=== PATIENT | female | born 1980 | race Caucasian/White ===

== ENCOUNTER → 2019-12-01 | Outpatient (REF) | payer OTHER ==
[2019-12-01 14:36] LABS: ALBUMIN 3.6 GM/DL (3.2-5.2); ALT/SGPT 29 U/L (12-78); BILIRUBIN,TOTAL 0.3 MG/DL (0.2-1.0); BLOOD UREA NITROGEN 13 MG/DL (7-18); CALCIUM LEVEL 9.3 MG/DL (8.5-10.1); CARBON DIOXIDE LEVEL 23 MEQ/L (21-32); CHLORIDE LEVEL 110 MEQ/L (98-107); CHOLESTEROL LEVEL 161 MG/DL (<200); CHOLESTEROL RISK RATIO 4.025 (<5); CREATININE FOR GFR 0.79 MG/DL (0.55-1.30); GLOMERULAR FILTRATION RATE > 60.0 (>58); GLUCOSE, FASTING 103 MG/DL (70-100); HDL CHOLESTEROL 40 MG/DL (>40); LDL CHOLESTEROL 98 MG/DL (<100); NON-HDL-C 121 MG/DL; SODIUM LEVEL 139 MEQ/L (136-145); TOTAL PROTEIN 7.2 GM/DL (6.4-8.2); TRIGLYCERIDES LEVEL 116 MG/DL (<150)
== END ==
LOC: M LAB REF 12:43
PROVIDERS: ATTEND Physician Assistant
DX: Z00.00 Encounter for general adult medical examination without abnormal findings (principal); Z68.42 Body mass index [BMI] 45.0-49.9, adult; E66.01 Morbid (severe) obesity due to excess calories; L30.9 Dermatitis, unspecified; F17.210 Nicotine dependence, cigarettes, uncomplicated; J45.20 Mild intermittent asthma, uncomplicated; Z23 Encounter for immunization; Z13.9 Encounter for screening, unspecified; J30.81 Allergic rhinitis due to animal (cat) (dog) hair and dander; G43.109 Migraine with aura, not intractable, without status migrainosus

== ENCOUNTER → 2019-12-01 | Outpatient (REF) | payer OTHER ==
[2019-12-01 14:28] LABS: BASO # 0.1 10^3/uL (0.0-0.2); BASO % 0.7 % (0.0-1.0); EOS # 0.3 10^3/uL (0.0-0.5); EOS % 4.2 % (0.0-3.0); HEMATOCRIT 45.6 % (36.0-47.0); HEMOGLOBIN 14.2 g/dl (12.0-15.5); LYMPH # 2.9 10^3/uL (1.5-5.0); LYMPH % 36.3 % (24.0-44.0); MEAN CORPUSCULAR HEMOGLOBIN 26.7 pg (27.0-33.0); MEAN CORPUSCULAR HGB CONC 31.1 g/dl (32.0-36.5); MEAN CORPUSCULAR VOLUME 85.7 fl (80.0-96.0); MONO # 0.6 10^3/uL (0.0-0.8); MONO % 7.3 % (0.0-5.0); NEUTROPHILS # 4.1 10^3/uL (1.5-8.5); NEUTROPHILS % 51.4 % (36.0-66.0); PLATELET COUNT, AUTOMATED 305 10^3/uL (150-450); RED BLOOD COUNT 5.32 10^6/uL (4.00-5.40)
[2019-12-01 14:42] LABS: FREE T4 1.08 NG/DL (0.76-1.46); PROLACTIN 11.8 NG/ML; THYROID STIMULATING HORMONE 1.73 uIU/ML (0.358-3.740)
== END ==
LOC: M LABDRWAD 12:39
PROVIDERS: ATTEND Nurse Practitioner Women's Health
DX: N92.0 Excessive and frequent menstruation with regular cycle (principal)

== ENCOUNTER → 2020-04-19 | Outpatient (CLI) | payer OTHER ==
[~2020-04-19] MED LIST: ACET1TAB55 PO; BENA25CA4 PO; BUSP10TA PO; CETI10CH PO; CHAN1PAK13 PO; IBUP200C27 PO; PROAAER10 INH
== END ==
LOC: M LABSMTC 09:40
PROVIDERS: ATTEND Anesthesiology
DX: Z03.818 Encounter for observation for suspected exposure to other biological agents ruled out (principal); Z11.59 Encounter for screening for other viral diseases
CPT/HCPCS: C9803; U0003

== ENCOUNTER 2020-04-22 10:44 | Day surgery (SDC) | payer MEDICAID, OTHER ==
[~2020-04-22] VITALS: Ht 167.6 cm; Wt 113.6 kg
[2020-04-22] VITALS (7 sets, daily range): BP systolic 108–150; BP diastolic 59–80; O2SAT 93
[~2020-04-22 10:44] MED LIST changes: +LR 1,000 ML IV ONE; +ceFAZolin SOD 2 GM in IV 1 EA IV ONE
[2020-04-22 11:42] LABS: HEMATOCRIT 45.7 % (36.0-47.0); HEMOGLOBIN 14.9 g/dl (12.0-15.5); MEAN CORPUSCULAR HEMOGLOBIN 27.4 pg (27.0-33.0); MEAN CORPUSCULAR HGB CONC 32.6 g/dl (32.0-36.5); MEAN CORPUSCULAR VOLUME 84.2 fl (80.0-96.0); PLATELET COUNT, AUTOMATED 367 10^3/uL (150-450); RED BLOOD COUNT 5.43 10^6/uL (4.00-5.40); WHITE BLOOD COUNT 11.9 10^3/uL (4.0-10.0)
[2020-04-22] MEDS ORDERED: fentaNYL 250 MCG/5 ML INJECTION (J3010) As Ordered ONE (11:51)
[2020-04-22] MEDS ORDERED: propofoL 200 MG/20 ML VIAL As Ordered ONE (11:51)
[2020-04-22] MEDS ORDERED: LIDOCAINE 2% 100MG/5ML SDV (FOR ANES.) As Ordered ONE ×2 (11:51→17:33)
[2020-04-22] MEDS ORDERED: MIDAZOLAM INJ 2MG/2ML VIAL (J2250 PER 1MG) As Ordered ONE (11:51)
[2020-04-22] MEDS ORDERED: dexameTHASONE 4 MG/ML 1ML VIAL (J1100 PER 1MG) As Ordered ONE (11:52)
[2020-04-22 12:00] LABS: HCG, SERUM QUALITATIVE NEGATIVE (NEGATIVE)
[2020-04-22] MEDS ORDERED: METHYLENE BLUE 0.5% (5MG/ML) 10 ML AMP (PROVAYBLUE) As Ordered ONE (15:36)
[2020-04-22] MEDS ORDERED: LABETALOL 100MG/20ML VIAL As Ordered ONE (16:57)
[2020-04-22] MEDS ORDERED: ROCURONIUM BROMIDE 50 MG/5 ML VIAL As Ordered ONE ×2 (17:07→17:47)
[2020-04-22] MEDS ORDERED: ACETAMINOPHEN 1000MG 100ML IV BTL (OFIRMEV) (J0131 PER 10MG) As Ordered ONE (17:22)
[2020-04-22] MEDS ORDERED: SUGAMMADEX SODIUM 500 MG/5 ML VIAL (BRIDION) As Ordered ONE (17:22)
[2020-04-22] MEDS ORDERED: ONDANSETRON 4MG/2ML VIAL As Ordered ONE (17:22)
[2020-04-22] MEDS ORDERED: HYDROmorphone HCL 2 MG/ML 1ML VIAL (J1170) As Ordered ONE (17:46)
[2020-04-22] MEDS ORDERED: MORPHINE 1MG/ML IN 0.9% NACL 100ML IV BAG As Ordered ONE (18:47)
[2020-04-22] MEDS ORDERED: IBUPROFEN 600MG TAB PO PRN (19:00)
[2020-04-22] MEDS ORDERED: fentaNYL 100 MCG/2 ML INJECTION (J3010) IV PRN (19:00)
[2020-04-22] MEDS ORDERED: NALBUPHINE HCL 10 MG/ML AMP (J2300) IV PRN (19:00)
[2020-04-22] MEDS ORDERED: MORPHINE 1MG/ML IN 0.9% NACL 100ML IV BAG IV PRN (19:00)
[2020-04-22] MEDS ORDERED: METOCLOPRAMIDE INJ 10MG/2ML VIAL (J2765 PER 1) IV PRN (19:00)
[2020-04-22] MEDS ORDERED: EPIDURAL/PCA KEYS XX PRN (19:00)
[2020-04-22] MEDS ORDERED: LR 1,000 ML IV SCH (19:00)
[2020-04-22] MEDS ORDERED: NALOXONE INJ 0.4MG/1ML VIAL (J2310 PER 1MG) IV PRN (19:00)
[2020-04-22] MEDS ORDERED: MEPERIDINE INJ 25 MG/ML VIAL (J2175) IV PRN (19:00)
[2020-04-22] MEDS ORDERED: diphenhydrAMINE 50MG/ML VIAL (J1200) IV PRN (19:00)
[2020-04-22] MEDS ORDERED: ONDANSETRON 4MG/2ML VIAL IV PRN (19:00)
[2020-04-22] MEDS ORDERED: PERCOCET 5MG/325MG TAB PO PRN (19:00)
[2020-04-22] MEDS: LR 1,000 ML IV SCH (20:58)
[2020-04-23 00:55] VITALS: BP 114/62
[2020-04-23] MEDS: LR 1,000 ML IV SCH ×2 (04:03→11:00)
[2020-04-23 04:55] VITALS: BP 123/63
[2020-04-23] MEDS ORDERED: NORCO, ANEXSIA 5/325MG TABLET (HYDROcodone/ACETAMINOPHEN) PO PRN (06:00)
[2020-04-23 08:55] VITALS: BP 116/62
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
== END 2020-04-23 11:25 | disposition home or self-care (01) ==
LOC: M SDC 10:44 → M MSPAV 19:55 → M SDC 04-23 11:25
PROVIDERS: ATTEND Obstetrics & Gynecology
DX: N83.11 Corpus luteum cyst of right ovary (principal); N83.202 Unspecified ovarian cyst, left side; N92.0 Excessive and frequent menstruation with regular cycle; J45.909 Unspecified asthma, uncomplicated; D64.9 Anemia, unspecified; G43.909 Migraine, unspecified, not intractable, without status migrainosus; F41.9 Anxiety disorder, unspecified; F32.9 Major depressive disorder, single episode, unspecified; F17.218 Nicotine dependence, cigarettes, with other nicotine-induced disorders; Z79.899 Other long term (current) drug therapy
CPT/HCPCS: 36415; 58571; 84703; 85027; 86850; 86900; 86901; 88307; J0131; J0690; J1100; J1170; J2250; J2405; J3010; Q9968

== ENCOUNTER → 2020-10-03 | Outpatient (REF) | payer MEDICAID ==
[~2020-10-03] MED LIST changes: -LR 1,000 ML IV ONE; -ceFAZolin SOD 2 GM in IV 1 EA IV ONE
== END ==
LOC: M LAB REF 12:08
PROVIDERS: ATTEND Physician Assistant
DX: J02.9 Acute pharyngitis, unspecified (principal)

== ENCOUNTER → 2023-09-30 | Outpatient (REF) | payer BC | LOC: M LAB REF 18:57 | PROVIDERS: ATTEND Physician Assistant Medical | DX: B34.9 Viral infection, unspecified (principal) ==

== ENCOUNTER → 2024-12-09 | Outpatient (REF) | payer OTHER ==
[~2024-12-09] MED LIST changes: +PRED20TA
[2024-12-09 17:30] LABS: BASO # 0.1 10^3/uL (0.0-0.2); EOS # 0.4 10^3/uL (0.0-0.5); EOS % 3.9 % (0.0-3.0); HEMATOCRIT 42.9 % (36.0-47.0); HEMOGLOBIN 13.5 g/dl (12.0-15.5); LYMPH # 3.1 10^3/uL (1.5-5.0); LYMPH % 30.4 % (24.0-44.0); MEAN CORPUSCULAR HEMOGLOBIN 26.4 pg (27.0-33.0); MEAN CORPUSCULAR HGB CONC 31.5 g/dl (32.0-36.5); MONO # 0.5 10^3/uL (0.0-0.8); MONO % 5.3 % (2.0-8.0); PLATELET COUNT, AUTOMATED 352 10^3/uL (150-450); RED BLOOD COUNT 5.11 10^6/uL (4.00-5.40); WHITE BLOOD COUNT 10.2 10^3/uL (4.0-10.0)
[2024-12-09 17:32] LABS: BLOOD UREA NITROGEN 18 MG/DL (9-23); CALCIUM LEVEL 8.6 MG/DL (8.5-10.1); CARBON DIOXIDE LEVEL 26 MMOL/L (20-31); CHLORIDE LEVEL 110 MMOL/L (98-107); CHOLESTEROL LEVEL 160 MG/DL (<200); CREATININE FOR GFR 0.95 MG/DL (0.55-1.30); GLOMERULAR FILTRATION RATE > 60.0 (>58); GLUCOSE, FASTING 120 MG/DL (60-100); HDL CHOLESTEROL 55.1 MG/DL (>40); LDL CHOLESTEROL 83.7 MG/DL (<100); NON-HDL-C 104.9 MG/DL; POTASSIUM SERUM 4.4 MMOL/L (3.5-5.1); SODIUM LEVEL 145 MMOL/L (136-145); TRIGLYCERIDES LEVEL 106 MG/DL (<150)
[2024-12-09 17:34] LABS: THYROID STIMULATING HORMONE 1.722 uIU/ML (0.55-4.78)
[2024-12-09 17:44] LABS: HEMOGLOBIN A1c 5.4 % (4.0-6.0)
== END ==
LOC: M LAB REF 16:51
PROVIDERS: ATTEND Nurse Practitioner Family
DX: F41.9 Anxiety disorder, unspecified (principal); E66.9 Obesity, unspecified